=== PATIENT | male | born 1980 | race Caucasian/White ===

== ENCOUNTER 2020-05-17 10:08 | Inpatient (IN) | payer OTHER, SELFPAY ==
[2020-05-17 10:36] LABS: #Basophils 0.1 thou/uL (0.0-0.2); #Eosinphils 0.4 thou/uL (0.0-0.7); #Lymphocytes 3.2 thou/uL (1.20-3.40); #Monocytes 2.1 thou/uL (0.11-0.59); #Neutrophils 10.8 thou/uL (1.40-6.50); %Basophils 0.8 % (0.0-1.0); %Eosinophils 2.4 % (0.0-10.0); %Lymphocytes 19.4 % (21.0-51.0); %Monocytes 12.7 % (0.0-10.0); %Neutrophils 64.7 % (42.0-75.0); Hemoglobin 11.9 g/dL (14.0-18.0); Mean Corpuscular HGB CONC 31.7 g/dL (32.0-36.0); Mean Corpuscular Hemoglobin 35.2 pg (27.0-31.0); Platelet Count 86 thou/uL (130-400); RBC Distribution Width 15.5 % (11.5-14.5); White Blood Cell (WBC) Count 16.7 thou/uL (4.8-10.8)
[2020-05-17 10:52] LABS: ALT (SGPT) 57 U/L (8-55); AST (SGOT) 208 U/L (5-34); Albumin 2.5 g/dL (3.5-5.0); Alkaline Phosphatase 130 U/L (40-110); Anion Gap 17 mmol/L (10-20); BUN (Urea Nitrogen) 12 mg/dL (8.9-20.6); Bilirubin, Total 15.6 mg/dL (0.2-1.2); Calc. Creatinine Clearance 0 mL/min (70-130); Calcium 7.7 mg/dL (7.8-10.44); Carbon Dioxide 19 mmol/L (22-29); Chloride 100 mmol/L (98-107); Estimated GFR-MDRD Greater than 90; Globulin 4.7 g/dL (2.4-3.5); Glucose 106 mg/dL (70-105); Potassium 4.1 mmol/L (3.5-5.1); Protein, Total 7.2 g/dL (6.0-8.3); Sodium 132 mmol/L (136-145)
[2020-05-17 11:03] LABS: INR-International Normal Ratio 1.9; PTT 40.5 sec (22.9-36.1); Prothrombin Time 21.7 sec (12.0-14.7)
--- NOTE | 2020-05-17 11:07 | RAD ---
XR Chest 1 View Portable HISTORY: Shortness of breath coughing up blood COMPARISON: None FINDINGS: The heart size is normal. There is elevation the right hemidiaphragm. The lungs are without focal ar eas of consolidation, pneumothorax or pleural effusions. IMPRESSION: No radiographic evidence of acute cardiopulmonary process.
[2020-05-17 11:11] LABS: MDiff Complete? YES; Macrocytosis MODERATE=16-30 cells (100X) (0-5/hpf); Platelet Morphology Comment Appears Decreased; Polychromasia SLIGHT = 2-3 cells (100X) (0-2/hpf); Target Cells SLIGHT = 2-5 cells (100X) (0-1/hpf)
[2020-05-17] MEDS ORDERED: Iopamidol-370 76% 500 ML 1 ML ONE (11:28)
--- NOTE | 2020-05-17 11:31 | CT ---
CT abdomen and pelvis with IV contrast HISTORY: Abdomen pain. Swelling. FINDINGS: No comparison. Lung bases are clear. Liver has a heterogeneous density and a nodular contour. Dilated venous structures involve the distal esophagus and GE junction. Spleen measures up to 15.3 cm length. Tiny hyperdense focus within the dependent portion of the gallbladder lumen. Prominent edematous appe arance of the gallbladder wall and the colon. Small amount of free fluid throughout the abdomen and pelvis. A 0.2 cm calculus is present within a nondilated calyx at the inferior pole of the left kidney. IMPRESSION : Cirrhosis. Findings of portal venous hypertension include moderate splenomegaly, esophageal varices, small amount of ascites, and edema of the colon and gallbladder. Cholelithiasis.
[2020-05-17] MEDS ORDERED: Pantoprazole 40 MG VIAL ONE (12:13)
[2020-05-17] MEDS ORDERED: Octreotide Acetate 50 MCG/ML AMP ONE (12:13)
[2020-05-17] MEDS ORDERED: cefTRIAXone\\ROCEPHIN 1 GM VIAL ONE (12:13)
[2020-05-17] MEDS ORDERED: Octreotide Acetate 1,250 MCG in Sodium Chloride 0.9% 250 ML 250 ML IVPB SCH (12:30)
[2020-05-17] MEDS ORDERED: Ondansetron PF 4 MG/2 ML Vial IVP PRN (12:30)
[2020-05-17] MEDS ORDERED: hydrALAZINE 20 MG/ML VIAL SLOW IVP PRN (12:39)
[2020-05-17] MEDS ORDERED: Labetalol HCl 100 MG/20 ML VIAL SLOW IVP PRN (12:39)
--- NOTE | 2020-05-17 13:36 | HP ---
PRIMARY CARE PHYSICIAN: No PCP. CHIEF COMPLAINT: Leg swelling. HISTORY OF PRESENT ILLNESS: The patient referred from [facility]. The patient states he noticed his leg started swelling 2 weeks ago. Yesterday, he took some ysdu-noc-ckknhgf water pill from [employer] and noticed his stomach started bloating. He has had fatigue at work. He states he has had dark urine like tea for quite a while. He would not admit to year, but he would not deny. He stated he vomited up some black, dark red blood this morning. He has had black stools for 3 days. Alcohol history is pertinent for 325 mL of vodka a day. PAST MEDICAL HISTORY: He had high blood pressure long ago, his blood pressure came down. He stopped his medicines. He states he checks his blood pressure with a thing at home, and it is always okay. MEDICATIONS: He has no prescription medicines. He does take ibuprofen [id number] every other night. ALLERGIES: HE HAS NO MEDICAL ALLERGIES. PAST SURGICAL HISTORY: He had an umbilical hernia repaired as a baby. He had a testicular torsion. FAMILY HISTORY: No liver disease. Mother is alive. Father is alive. He had a "pig valve" put in his heart. 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 His is surrogate decision maker. Full code status. 325 mL of vodka a day. Smokes four cigarettes a day with the vodka, but does not smoke otherwise, no illicit drugs. REVIEW OF SYSTEMS: GENERAL: No headaches, dizziness, or fainting. EYES: No double vision, blurred vision, or flashing light. EAR, NOSE, AND THROAT: No ear pain or drainage. No nasal bleeding. No trouble swallowing. CARDIAC: No chest pain, orthopnea, or paroxysmal nocturnal dyspnea. RESPIRATIONS: No cough, wheezing, or asthma. GASTROINTESTINAL: See present illness. GENITOURINARY: Dark urine. No blood in his urine. No painful urination. MUSCULOSKELETAL: Several weeks of swelling in his legs. No muscle pain. PSYCHIATRIC: No anxiety or depression. NEUROLOGICAL: No strokes, seizures, or focal weakness. SKIN: He bruises easily, showed me about a 5-cm ecchymosis on one upper arm. HEME/LYMPH: No tender or swollen lymph nodes in axilla, inguinal, cervical area. PHYSICAL EXAMINATION: GENERAL: The patient is alert, pleasant, cooperative gentleman, not in any distress. VITAL SIGNS: His blood pressure is in the emergency room ranged from 184/112 to 170/94. His pulse ranged from 109 to 124, respirations are 18 to 20, temperature 98.4, and O2 sat is adequate. GENERAL: He is alert, oriented, cooperative, pleasant gentleman. HEAD, EYES, EARS, NOSE, AND THROAT: Revealed pupils equal, round, and reactive to light. Extraocular movements are intact. Sclerae are icteric. Tympanic membranes are clear. Nose is clear. Throat is clear. CHEST: Clear to auscultation and percussion. HEART: Had a regular rate and rhythm. First and second heart sounds are clear. There are no appreciated murmurs or gallops. ABDOMEN: Distended with positive fluid wave. He is in no palpable hepatosplenomegaly or mass. No bruits. EXTREMITIES: 2+ edema with no cyanosis or clubbing. PULSES: Carotid, radial, femoral, and dorsalis pedis pulses intact. SKIN: Warm and dry without bruises or rash. HEME/LYMPH: No tender or swollen lymph nodes in axilla, inguinal, or cervical area. NEUROLOGIC: Cranial nerves 2 through 12 are intact. Moves all extremities DIAGNOSTIC DATA: EKG; regular sinus rhythm with mild tachycardia. No ST-T abnormality reviewed by me. Chest x-ray shows high diaphragms bilaterally consistent with limited diaphragmatic movement secondary to ascites. Abdominal and pelvis CT reveals cirrhosis, portal hypertension, moderate splenomegaly, esophageal varices, some ascites, edema of the colon and gallbladder. LABORATORY DATA: Laboratory was impressive. CBC: White count 16.7, hemoglobin 11.9, and platelet count is 86. INR is 1.9. Sodium 132, potassium 4.1, CO2 of 19, BUN 12, creatinine 0.61, lactate 2.5, bilirubin 15.6, AST 208, ALT 57, and alkaline phos 130. ADMITTING DIAGNOSES: 1. Gastrointestinal bleeding, likely varicele. 2. Anemia of acute blood loss. 3. Alcoholic cirrhosis with portal hypertension and varices and splenomegaly. 4. Coagulopathy secondary to alcoholic liver disease. 5. Thrombocytopenia. 6. Hypertension, untreated. PLAN: 1. IMCU care. 2. Type and screen for use 6 units of fresh frozen plasma. 3. H and H q.4 hours. Transfuse for hemoglobin less than 7. 4. Apresoline, labetalol IV for blood pressure control. 5. Banana bag daily. 6. Ativan 1 mg IV q.4 hours p.r.n. anxiety for alcohol withdrawal syndrome. 7. GI consult for endoscopy. Job ID: [id number] [facility] HOSPITALAniket
[2020-05-17 13:59] LABS: #Basophils 0.2 thou/uL (0.0-0.2); #Eosinphils 0.3 thou/uL (0.0-0.7); #Lymphocytes 2.9 thou/uL (1.20-3.40); #Monocytes 2.1 thou/uL (0.11-0.59); #Neutrophils 11.9 thou/uL (1.40-6.50); %Basophils 0.9 % (0.0-1.0); %Eosinophils 1.6 % (0.0-10.0); %Lymphocytes 16.6 % (21.0-51.0); %Monocytes 12.4 % (0.0-10.0); %Neutrophils 68.6 % (42.0-75.0); Hemoglobin 12.3 g/dL (14.0-18.0); MDiff Complete? YES; Macrocytosis SLIGHT = 6-15 cells (100X) (0-5/hpf); Mean Corpuscular HGB CONC 32.4 g/dL (32.0-36.0); Mean Corpuscular Hemoglobin 36.9 pg (27.0-31.0); Mean Platelet Volume 10.3 fL (7.4-10.4); Platelet Count 86 thou/uL (130-400); Platelet Morphology Comment Appears Decreased; RBC Distribution Width 15.8 % (11.5-14.5); Red Blood Cell (RBC) Count 3.34 mill/uL (4.70-6.10); White Blood Cell (WBC) Count 17.3 thou/uL (4.8-10.8)
[2020-05-17 14:29] VITALS: BMI 31.1
[2020-05-17] MEDS: Pantoprazole 40 MG VIAL IVP SCH (14:50)
[2020-05-17] MEDS: Multivitamins, Adult 10 ML, Folic Acid 1 MG, Thiamine HCl 100 MG in Dextrose 5 %-0.45 %... IV SCH (14:50)
[2020-05-17 15:17] LABS: Lactic Acid 2.7 mmol/L (0.5-2.2)
[2020-05-17] MEDS: Lorazepam 2 MG/ML VIAL SLOW IVP PRN (16:35)
[2020-05-17 16:56] LABS: #Basophils 0.1 thou/uL (0.0-0.2); #Eosinphils 0.1 thou/uL (0.0-0.7); #Lymphocytes 1.4 thou/uL (1.20-3.40); #Monocytes 1.2 thou/uL (0.11-0.59); #Neutrophils 8.7 thou/uL (1.40-6.50); %Basophils 0.6 % (0.0-1.0); %Eosinophils 0.6 % (0.0-10.0); %Lymphocytes 12.3 % (21.0-51.0); %Monocytes 10.2 % (0.0-10.0); %Neutrophils 76.4 % (42.0-75.0); Hemoglobin 11.6 g/dL (14.0-18.0); Mean Corpuscular HGB CONC 33.1 g/dL (32.0-36.0); Mean Corpuscular Hemoglobin 36.7 pg (27.0-31.0); Platelet Count 68 thou/uL (130-400); RBC Distribution Width 15.6 % (11.5-14.5); Red Blood Cell (RBC) Count 3.16 mill/uL (4.70-6.10); White Blood Cell (WBC) Count 11.4 thou/uL (4.8-10.8)
[2020-05-17 16:58] LABS: MDiff Complete? YES
[2020-05-17] MEDS: Sodium Chloride 0.9% 1,000 ML IV SCH (19:18)
--- NOTE | 2020-05-17 20:18 | CON ---
DATE OF CONSULTATION: 05/17/2020 REASON FOR CONSULTATION: Hematemesis, new diagnosis of cirrhosis. CONSULTING PROVIDER: Candi Kothari MD HISTORY OF PRESENT ILLNESS: The patient is a 40-year-old male with past medical history of alcohol abuse/dependence, presenting with complaints of lower extremity edema and hematemesis. He states that he was in his usual state of health until approximately two and half weeks ago when he had the persistent/progressive onset of increased lower extremity edema extending from his foot to about mid almeida. He adds that he had this swelling in his legs in the past, but never persisted beyond 24 hours. However, over the next two and half weeks, the patient had worsening of this bilateral lower extremity edema despite elevation of his lower extremities. This was accompanied with increased right upper quadrant abdominal pain that he characterized as a sharp/aching type sensation, was nonradiating, was intermittent, where it would occur daily, lasts for 2 to 3 hours and reach a severity of 8/10. He could not recall any exacerbating factors, but did state that this abdominal pain would get better with drinking alcohol as well as administration of ibuprofen 400 mg daily that he has been taking for the last four months. However, with worsening of this of abdominal pain and lower extremity edema, he also noted increased abdominal distention in addition to having darker colored stools that have been present for the last four days. He characterized his stools as dark brown in coloration, but having approximately 10 to 12 small volume semi-solid bowel movements per day. Finally, his worsening clinical status culminated with the patient exhibiting nausea to this morning with vomiting of small amount of bright red blood that the patient characterizes approximately 1 tablespoon, which then ultimately prompted him to seek healthcare assistance. He also describes increased fatigue/tiredness that have been present for the last two and half weeks. He notes that he has been having increased jaundice (yellowing of his skin and his eyes that have been present for the last two months), in addition to spider angiomata that have been present for the last 2 to 3 years. Currently, he denies any fevers, chills, hematochezia, odynophagia, dysphagia, constipation, and weight loss. REVIEW OF SYSTEMS: A 10-category review of systems was obtained with all responses negative except for the pertinent positives as listed in HPI. PAST MEDICAL HISTORY: As per HPI. PAST SURGICAL HISTORY: Umbilical hernia repaired as a child and repair of testicular torsion. FAMILY HISTORY: Denies any GI malignancies. SOCIAL HISTORY: He drinks approximately one half a bottle of vodka a day. Smokes approximately one quarter to one half pack per day, but denies any illicit drug use. OUTPATIENT MEDICATIONS: Ibuprofen 400 mg daily. ALLERGIES: NO KNOWN DRUG ALLERGIES. PHYSICAL EXAMINATION: VITAL SIGNS: Temperature 99.2, pulse 109, blood pressure 156/86, respiratory rate 25, and saturating 92% on room air. GENERAL: The patient is lying in bed, in no acute distress. Alert and oriented x4. HEENT: Normocephalic and atraumatic. No JVD noted. Positive scleral icterus. CARDIOVASCULAR: Tachycardic rate, but regular rhythm. No discernible murmurs, gallops, or rubs. RESPIRATORY: Clear to auscultation bilaterally with no discernible wheezes or rales. ABDOMEN: Normoactive bowel sounds. Soft, but mildly tense to palpation. Qegs-uh-ayxfufhd abdominal distention with shifting dullness. No tenderness to palpation. EXTREMITIES: 1+/2+ bilateral lower extremity edema extending up to bilateral knees. No cyanosis or clubbing. LABORATORY DATA: CBC with a white blood cell count of 16.7, hemoglobin 11.9, hematocrit 37.7, and platelets 86. INR 1.9. Chemistry with a sodium of 132, potassium 4.1, chloride 100, CO2 of 19, BUN 12, creatinine 0.61, glucose 106, AST 208, ALT 57, alkaline phosphatase 130, total bilirubin 15.6, albumin 2.5, and lipase 40. IMAGING DATA: CT of the abdomen and pelvis was obtained on May 17, 2020, which showed the presence of heterogeneous density of the liver, in addition to a nodular contour concerning for cirrhosis, esophageal varices and gastric varices were seen along with splenomegaly. A small amount of ascites was seen in addition to edema surrounding the colon and the gallbladder. ASSESSMENT AND PLAN: The patient is a 40-year-old male with past medical history of alcohol abuse/dependence, presenting with hematemesis and a new diagnosis of cirrhosis likely contributing to his lower extremity edema and abdominal distention. Cirrhosis. The patient is presenting with an extensive alcohol consumption history, drinking approximately one half liter of vodka daily for at least the last 20 years. On physical examination, he does have significant swelling in his lower extremities in addition to abdominal distention, spider angiomata, scleral icterus, and generalized jaundice, all indicative of liver pathology. On imaging, the patient is displaying cirrhotic morphology of the liver in addition to esophageal and gastric varices all pointing towards the diagnosis of cirrhosis. At the current time, the most likely etiology for his cirrhosis is alcohol abuse, although full liver workup has not been performed at this time. The patient is presenting with decompensated liver disease with a calculated MELD score of 27 and a Child-Macdonald classification C. The patient has never undergone esophagogastroduodenoscopy or colonoscopy for screening of esophageal varices and colorectal cancer respectively. Based on his current imaging, there was no evidence of hepatoma/hepatocellular carcinoma, but the patient will need repeat imaging every 6 months. Recommendations; 1. Would perform a full liver workup to evaluate for any underlying etiologies for cirrhosis despite chronic alcohol abuse. 2. Strongly encourage the patient about alcohol cessation/abstinence. 3. The patient will ultimately need a screening colonoscopy as an outpatient, but would hold at this time. 4. Based on the recent alcohol abuse. The patient is not currently a transplant candidate despite a significantly elevated MELD score, if he continues to have an elevated MELD score and is able to abstain from alcohol, he may be transplant candidate in the future. Hematemesis. The patient is presenting with one episode of hematemesis characterized as coffee-grounds/bright red blood this morning with approximately 1 tablespoon worth of bleeding. However, given his new diagnosis of cirrhosis, in addition to his coagulopathy (INR 1.9), it does raise the concern for continued or active bleeding at this time. However, while the patient is currently tachycardic, he is normotensive, which raises the question whether or not he continues to be actively bleeding. At the current time, the differential could include esophageal varices, portal hypertensive gastropathy, peptic ulcer disease, Dieulafoy lesion, arteriovenous malformation, gastroesophageal reflux disease and/or gastrointestinal neoplasm. Recommendations; 1. Would continue to trend his H and H and transfuse as necessary to maintain an H and H of 7/21. 2. Continue to monitor clinically for signs of active gastrointestinal bleeding. 3. Would place the patient on pantoprazole 40 mg IV b.i.d. 4. We will place the patient on octreotide drip for possible esophageal varices bleeding. 5. Would avoid any anticoagulation for the time being in light of active gastrointestinal bleeding. 6. Agree with placing the patient on antibiotics as part of infection prophylaxis in a bleeding patient with cirrhosis. Lower extremity edema/abdominal ascites. The patient is presenting with new onset of lower extremity edema and ascites that had been present for the last two and half weeks. On initial imaging, the patient was noted to have a small amount of ascites in addition to cirrhotic morphology, making cirrhosis more likely explanation for the formation of these areas of swelling. However, with his concurrent concern for gastrointestinal bleeding, placement on diuretic therapy at this time may not be indicated due to possibility of hypotension. Recommendations; 1. Would place the patient on a low-sodium, high-protein diet over the course of this admission after the patient has undergone upper endoscopy. 2. Would consider pursuing an upper abdominal paracentesis for further evaluation of his ascitic fluid, especially in light of worsening abdominal pain. 3. Would consider placing the patient on diuretic therapy, but again not at this time given concern for active gastrointestinal bleeding. We will continue to follow. Please call with any questions. Job ID: [id number]
[2020-05-17 21:24] LABS: #Basophils 0.1 thou/uL (0.0-0.2); #Eosinphils 0.1 thou/uL (0.0-0.7); #Monocytes 1.5 thou/uL (0.11-0.59); #Neutrophils 7.6 thou/uL (1.40-6.50); %Basophils 0.6 % (0.0-1.0); %Eosinophils 1.1 % (0.0-10.0); %Lymphocytes 17.4 % (21.0-51.0); %Monocytes 13.4 % (0.0-10.0); %Neutrophils 67.4 % (42.0-75.0); Hemoglobin 10.6 g/dL (14.0-18.0); Mean Corpuscular HGB CONC 31.7 g/dL (32.0-36.0); Mean Corpuscular Hemoglobin 35.5 pg (27.0-31.0); Mean Platelet Volume 9.9 fL (7.4-10.4); Platelet Count 60 thou/uL (130-400); RBC Distribution Width 15.4 % (11.5-14.5); Red Blood Cell (RBC) Count 2.98 mill/uL (4.70-6.10); White Blood Cell (WBC) Count 11.3 thou/uL (4.8-10.8)
[2020-05-18 01:01] LABS: #Basophils 0.1 thou/uL (0.0-0.2); #Eosinphils 0.2 thou/uL (0.0-0.7); #Lymphocytes 1.8 thou/uL (1.20-3.40); #Monocytes 1.1 thou/uL (0.11-0.59); %Basophils 0.5 % (0.0-1.0); %Eosinophils 1.9 % (0.0-10.0); %Lymphocytes 19.7 % (21.0-51.0); %Monocytes 12.1 % (0.0-10.0); %Neutrophils 65.8 % (42.0-75.0); Hemoglobin 10.2 g/dL (14.0-18.0); Mean Corpuscular HGB CONC 32.9 g/dL (32.0-36.0); Mean Corpuscular Hemoglobin 36.8 pg (27.0-31.0); Mean Platelet Volume 10.1 fL (7.4-10.4); Platelet Count 56 thou/uL (130-400); RBC Distribution Width 15.4 % (11.5-14.5); Red Blood Cell (RBC) Count 2.78 mill/uL (4.70-6.10); White Blood Cell (WBC) Count 9.2 thou/uL (4.8-10.8)
[2020-05-18] MEDS: Sodium Chloride 0.9% 1,000 ML IV SCH ×3 (01:03→23:06)
[2020-05-18 04:00] LABS: INR-International Normal Ratio 1.8; Prothrombin Time 21.1 sec (12.0-14.7)
[2020-05-18 04:03] LABS: Lactic Acid 0.8 mmol/L (0.5-2.2)
[2020-05-18 04:12] LABS: ALT (SGPT) 51 U/L (8-55); AST (SGOT) 195 U/L (5-34); Albumin 2.4 g/dL (3.5-5.0); Alkaline Phosphatase 99 U/L (40-110); Anion Gap 11 mmol/L (10-20); BUN (Urea Nitrogen) 13 mg/dL (8.9-20.6); Calc. Creatinine Clearance 216 mL/min (70-130); Calcium 7.4 mg/dL (7.8-10.44); Carbon Dioxide 24 mmol/L (22-29); Chloride 105 mmol/L (98-107); Estimated GFR-MDRD Greater than 90; Glucose 95 mg/dL (70-105); Potassium 3.7 mmol/L (3.5-5.1); Protein, Total 6.4 g/dL (6.0-8.3); Sodium 136 mmol/L (136-145)
[2020-05-18 06:30] LABS: #Basophils 0.1 thou/uL (0.0-0.2); #Eosinphils 0.2 thou/uL (0.0-0.7); #Lymphocytes 1.7 thou/uL (1.20-3.40); #Neutrophils 5.7 thou/uL (1.40-6.50); %Basophils 0.8 % (0.0-1.0); %Eosinophils 2.1 % (0.0-10.0); %Lymphocytes 19.3 % (21.0-51.0); %Monocytes 11.3 % (0.0-10.0); %Neutrophils 66.6 % (42.0-75.0); Mean Corpuscular HGB CONC 31.9 g/dL (32.0-36.0); Mean Corpuscular Hemoglobin 35.7 pg (27.0-31.0); Mean Platelet Volume 9.9 fL (7.4-10.4); Platelet Count 54 thou/uL (130-400); RBC Distribution Width 15.6 % (11.5-14.5); White Blood Cell (WBC) Count 8.6 thou/uL (4.8-10.8)
[2020-05-18] MEDS: Pantoprazole 40 MG VIAL IVP SCH (08:57)
[2020-05-18 09:01] LABS: #Basophils 0.1 thou/uL (0.0-0.2); #Eosinphils 0.2 thou/uL (0.0-0.7); #Lymphocytes 1.5 thou/uL (1.20-3.40); #Neutrophils 6.9 thou/uL (1.40-6.50); %Basophils 0.7 % (0.0-1.0); %Eosinophils 1.6 % (0.0-10.0); %Lymphocytes 15.3 % (21.0-51.0); %Monocytes 10.5 % (0.0-10.0); %Neutrophils 71.9 % (42.0-75.0); Hemoglobin 10.5 g/dL (14.0-18.0); Mean Corpuscular HGB CONC 32.3 g/dL (32.0-36.0); Mean Corpuscular Hemoglobin 36.6 pg (27.0-31.0); Mean Platelet Volume 9.5 fL (7.4-10.4); Platelet Count 58 thou/uL (130-400); RBC Distribution Width 15.3 % (11.5-14.5); Red Blood Cell (RBC) Count 2.88 mill/uL (4.70-6.10); White Blood Cell (WBC) Count 9.6 thou/uL (4.8-10.8)
[2020-05-18] MEDS ORDERED: Ondansetron HCl/PF 4 MG/2 ML Vial IVP PRN (09:43)
[2020-05-18] MEDS ORDERED: Ketamine 50 MG/ML (10ML VIAL) ONE (09:44)
[2020-05-18] MEDS ORDERED: Lidocaine 1% PF 5 ML VIAL ONE (10:10)
[2020-05-18] MEDS ORDERED: PROPOFOL 200 MG/20 ML VIAL ONE (10:10)
--- NOTE | 2020-05-18 11:06 | OP ---
DATE OF PROCEDURE: 05/18/2020 REASON FOR PROCEDURE: Hematemesis, recent diagnosis of cirrhosis PROCEDURE PERFORMED: Esophagogastroduodenoscopy with band ligation. DESCRIPTION OF PROCEDURE: After the risks and benefits of the procedure were explained to the patient including risks of bleeding, infection, perforation, reactions to anesthesia, aspiration, and/or pain, informed consent was obtained. The patient was then taken to the endoscopy suite where he was maneuvered into the left lateral decubitus position followed by introduction of deep sedation via propofol and anesthesia support. Once adequate sedation was achieved, the standard gastroscope was introduced into the mouth with intubation of the esophagus, stomach, and the proximal small intestines with the findings listed below. The patient tolerated the procedure well with no immediate perioperative complications. On conclusion of the procedure, all equipment was removed from the patient and he was transferred to PACU in satisfactory condition. FINDINGS: Hypopharynx: The vocal cords were adequately visualized and yellow in appearance, but otherwise normal in morphology. Esophagus: Normal-appearing mucosa was seen in the proximal and mid esophagus; however, in the distal esophagus, there was noted to be large (grade 2/3) esophageal varices, extending proximally from the gastroesophageal junction. One of these varices did exhibit the appearance of mild red spot/red dania sign with no evidence of recent bleeding. However, given this high stigmata of bleeding, he subsequently underwent band ligation x3 with good hemostasis achieved and mild oozing of blood from the band ligation sites themselves. Otherwise, there was no evidence of erosions, ulcerations, mass lesions, or evidence of recent bleeding. Stomach: Diffuse mucosal erythema in a mosaic-type pattern was seen throughout the entire stomach and was moderate to severe in terms of severity; however, with this diffuse erythema, there were no associated erosions, ulcerations, mass lesions, or active/recent bleeding. There was no evidence of gastric varices on gastric retroflexion. Duodenum: Normal-appearing mucosa was seen in both the duodenal bulb and second portion of the duodenum. There was no evidence of erosions, ulcerations, mass lesions, or active/recent bleeding. IMPRESSION: 1. Large (grade 2/3) distal esophageal varices with red dania sign status post band ligation x3. 2. [id number] portal hypertensive gastropathy without evidence of bleeding. 3. No evidence of gastric varices. RECOMMENDATIONS: 1. Would continue to trend the patient's hemoglobin and hematocrit and transfuse as necessary to maintain the hemoglobin and hematocrit of 7/21. 2. Continue to monitor clinically for signs of GI bleeding. 3. Would continue the patient on PPI, but can be transferred to pantoprazole 40 mg IV b.i.d. 4. Would continue the patient on octreotide drip given the presence of esophageal varices and would continue this for a total duration of therapy of 72 hours. 5. Agree with placing the patient on an alcohol withdrawal protocol. 6. Would continue the patient on ceftriaxone daily in light of GI bleeding in a cirrhotic patient. 7. The patient will need repeat EGD in approximately 3 to 4 weeks for re-evaluation of the esophageal varices and possible band ligation at that time. The patient will also need to be placed on a nonselective beta-trina prior to admission, but would hold on that for now. We will continue to follow. Please call with any questions. Job ID: [id number]
[2020-05-18 12:37] LABS: SARS-CoV-2 MS2 Positive; SARS-CoV-2 N Gene Positive; SARS-CoV-2 S Gene Positive; SARS-CoV-2 by NAA DETECTED (NotDetected); SARS-CoV-2 orf1ab Positive
--- NOTE | 2020-05-18 13:56 | PDOC.HOSPP ---
- Subjective Encounter Date: 05/18/20 Subjective: No evidence of hematemesis this morning. - Objective Vital Signs & Weight: Vital Signs (12 hours) Temp Pulse Ox 05/18/20 08:11 99.8 F H 05/18/20 08:00 98 05/18/20 03:31 99.8 F H Weight Admit Weight 230 lb Weight 230 lb Most Recent Monitor Data Heart Rate from ECG 94 NIBP 134/88 NIBP BP-Mean 103 Respiration from ECG 19 SpO2 94 I&O: 05/17/20 05/18/20 05/19/20 06:59 06:59 06:59 Intake Total 1266 Output Total 570 Balance 696 Result Diagrams: 05/19/20 03:20 05/19/20 03:20 Hospitalist ROS - Medication Medications: Active Medications Generic Name Dose Route Start Last Admin Trade Name Freq PRN Reason Stop Dose Admin Sodium Chloride 1,000 mls @ 100 mls/hr 05/17/20 12:30 05/18/20 01:03 Normal Saline 0.9% IV 1,000 mls .Q10H YOANDY Administration Multivitamins 10 ml/ Folic 1,011.2 mls @ 250 mls/hr 05/17/20 13:00 05/17/20 14:50 Acid 1 mg/ Thiamine HCl 100 mg IV 1,011.2 mls / Dextrose/Sodium Chloride Q24HR YOANDY Administration Lorazepam 1 mg 05/17/20 12:56 05/17/20 16:35 Ativan SLOW IVP 1 mg Q4H PRN Administration Anxiety/Agitation Ondansetron HCl 4 mg 05/17/20 12:30 05/17/20 16:54 Zofran IVP 4 mg Q6H PRN Administration Nausea/Vomiting Pantoprazole Sodium 40 mg 05/17/20 09:00 05/18/20 08:57 Protonix IVP 40 mg DAILY YOANDY Administration - Exam ENT: normocephalic atraumatic Neck: supple, no JVD Respiratory: normal chest expansion, no tachypnea Extremities: no cyanosis, no clubbing, no edema Hosp A/P (1) Hematemesis Code(s): K92.0 - HEMATEMESIS Status: Acute (2) Liver cirrhosis Code(s): K74.60 - UNSPECIFIED CIRRHOSIS OF LIVER Status: Acute (3) Esophageal varices Code(s): I85.00 - ESOPHAGEAL VARICES WITHOUT BLEEDING Status: Acute (4) Anemia due to acute blood loss Code(s): D62 - ACUTE POSTHEMORRHAGIC ANEMIA Status: Acute (5) Thrombocytopenia Code(s): D69.6 - THROMBOCYTOPENIA, UNSPECIFIED Status: Acute (6) COVID-19 virus infection Code(s): U07.1 - COVID-19 Status: Acute - Plan Acute upper GI bleeding due to esophageal varices. Secondary to liver cirrhosis with portal hypertension. Status post EGD with band ligation. Continue Protonix 40 mg IV twice daily and octreotide drip for 72 hours. The patient is a positive for COVID-19, however, he is not hypoxic and will be managed conservatively. Continue ASA protocol for alcohol withdrawal.
[2020-05-18] MEDS: Lorazepam 2 MG/ML VIAL SLOW IVP PRN ×2 (14:34→22:19)
[2020-05-18] MEDS: Multivitamins, Adult 10 ML, Folic Acid 1 MG, Thiamine HCl 100 MG in Dextrose 5 %-0.45 %... IV SCH (14:38)
[2020-05-19 03:42] LABS: Prothrombin Time 22.8 sec (12.0-14.7)
[2020-05-19 03:43] LABS: #Basophils 0.1 thou/uL (0.0-0.2); #Eosinphils 0.2 thou/uL (0.0-0.7); #Lymphocytes 1.2 thou/uL (1.20-3.40); #Monocytes 0.8 thou/uL (0.11-0.59); #Neutrophils 4.7 thou/uL (1.40-6.50); %Basophils 1.1 % (0.0-1.0); %Eosinophils 3.1 % (0.0-10.0); %Lymphocytes 17.6 % (21.0-51.0); %Monocytes 11.1 % (0.0-10.0); %Neutrophils 67.1 % (42.0-75.0); Mean Corpuscular HGB CONC 32.6 g/dL (32.0-36.0); Mean Corpuscular Hemoglobin 37.5 pg (27.0-31.0); Mean Platelet Volume 10.2 fL (7.4-10.4); Platelet Count 51 thou/uL (130-400); RBC Distribution Width 15.6 % (11.5-14.5); Red Blood Cell (RBC) Count 2.67 mill/uL (4.70-6.10); White Blood Cell (WBC) Count 6.9 thou/uL (4.8-10.8)
[2020-05-19 03:58] LABS: ALT (SGPT) 51 U/L (8-55); AST (SGOT) 196 U/L (5-34); Albumin 2.3 g/dL (3.5-5.0); Alkaline Phosphatase 93 U/L (40-110); Anion Gap 11 mmol/L (10-20); BUN (Urea Nitrogen) 9 mg/dL (8.9-20.6); Bilirubin, Total 20.8 mg/dL (0.2-1.2); Calc. Creatinine Clearance 238 mL/min (70-130); Calcium 7.4 mg/dL (7.8-10.44); Carbon Dioxide 21 mmol/L (22-29); Chloride 108 mmol/L (98-107); Estimated GFR-MDRD Greater than 90; Glucose 77 mg/dL (70-105); Potassium 3.8 mmol/L (3.5-5.1); Protein, Total 6.3 g/dL (6.0-8.3); Sodium 136 mmol/L (136-145)
[2020-05-19] MEDS: Sodium Chloride 0.9% 1,000 ML IV SCH ×2 (10:38→15:39)
[2020-05-19] MEDS: Pantoprazole 40 MG VIAL IVP SCH (10:38)
[2020-05-19] MEDS: Multivitamins, Adult 10 ML, Folic Acid 1 MG, Thiamine HCl 100 MG in Dextrose 5 %-0.45 %... IV SCH (13:46)
--- NOTE | 2020-05-19 14:33 | PDOC.HOSPP ---
- Subjective Encounter Date: 05/19/20 Subjective: No new complaints today. Patient appears to be calm. - Objective Vital Signs & Weight: Vital Signs (12 hours) Temp Pulse Ox 05/19/20 08:00 98 05/19/20 07:00 98.5 F 05/19/20 03:41 98.6 F Weight Admit Weight 230 lb Weight 230 lb Most Recent Monitor Data Heart Rate from ECG 86 NIBP 137/74 NIBP BP-Mean 95 Respiration from ECG 25 SpO2 98 I&O: 05/18/20 05/19/20 05/20/20 06:59 06:59 06:59 Intake Total 3867 057 0910 Output Total 570 1650 300 Balance 696 -460 980 Result Diagrams: 05/19/20 03:20 05/19/20 03:20 Hospitalist ROS - Medication Medications: Active Medications Generic Name Dose Route Start Last Admin Trade Name Freq PRN Reason Stop Dose Admin Octreotide Acetate 1,250 mcg/ 251.25 mls @ 10.05 mls/hr 05/17/20 12:30 14:34 Sodium Chloride IVPB 251.25 mls INF YOANDY Administration 50 MCG/HR Sodium Chloride 1,000 mls @ 100 mls/hr 05/17/20 12:30 05/19/20 10:38 Normal Saline 0.9% IV 1,000 mls .Q10H YOANDY Administration Multivitamins 10 ml/ Folic 1,011.2 mls @ 250 mls/hr 05/17/20 13:00 05/19/20 13:46 Acid 1 mg/ Thiamine HCl 100 mg IV 1,011.2 mls / Dextrose/Sodium Chloride Q24HR YOANDY Administration Lorazepam 1 mg 05/17/20 12:56 05/18/20 22:19 Ativan SLOW IVP 1 mg Q4H PRN Administration Anxiety/Agitation Ondansetron HCl 4 mg 05/17/20 12:30 05/17/20 16:54 Zofran IVP 4 mg Q6H PRN Administration Nausea/Vomiting Pantoprazole Sodium 40 mg 05/17/20 09:00 05/19/20 10:38 Protonix IVP 40 mg DAILY YOANDY Administration - Exam Neck: supple, no JVD Respiratory: CTAB Gastrointestinal: soft Extremities: no cyanosis, no clubbing Hosp A/P (1) Hematemesis Code(s): K92.0 - HEMATEMESIS Status: Acute (2) Liver cirrhosis Code(s): K74.60 - UNSPECIFIED CIRRHOSIS OF LIVER Status: Acute (3) Esophageal varices Code(s): I85.00 - ESOPHAGEAL VARICES WITHOUT BLEEDING Status: Acute (4) Anemia due to acute blood loss Code(s): D62 - ACUTE POSTHEMORRHAGIC ANEMIA Status: Acute (5) Thrombocytopenia Code(s): D69.6 - THROMBOCYTOPENIA, UNSPECIFIED Status: Acute (6) COVID-19 virus infection Code(s): U07.1 - COVID-19 Status: Acute - Plan Acute upper GI bleeding due to esophageal varices. Secondary to liver cirrhosis with portal hypertension. Status post EGD with band ligation. No active bleeding reported today. H&H stable. Continue Protonix 40 mg IV twice daily and octreotide drip for 48 hours. The patient is a positive for COVID-19, however, he is not hypoxic and will be managed conservatively. Continue ASE protocol for alcohol withdrawal. No overt signs of withdrawal today.
--- NOTE | 2020-05-19 17:33 | PRG ---
DATE OF SERVICE: 05/19/2020 REASON FOR CONSULTATION: Hematemesis and cirrhosis. SUBJECTIVE: Overnight, the patient did not experience any acute events or problems. He had no further episodes of hematemesis nor did he have any episodes of melena consistent with GI bleeding. Today, he states he had some mild abdominal bloating/discomfort that resolved completely with having a bowel movement. Otherwise, he denies any nausea, vomiting, fevers, chills, hematemesis, melena, hematochezia, odynophagia, or dysphagia. OBJECTIVE: VITAL SIGNS: Temperature 98.3, pulse 82, blood pressure 157/69, respiratory rate 16, saturating 95% on room air. GENERAL: The patient was lying in bed, in no acute distress. Alert and oriented x4. CARDIOVASCULAR: Regular rate and rhythm. RESPIRATORY: Clear to auscultation bilaterally. ABDOMEN: Normoactive bowel sounds. Soft, nontender. [id number] abdominal distention. EXTREMITIES: 1+/2+ bilateral lower extremity edema extending up to the knees. LABORATORY DATA: CBC with a white blood cell count of 6.9, hemoglobin 10, hematocrit 30.6, platelets 51. Chemistry with a sodium of 136, potassium 3.8, chloride 108, CO2 of 21, BUN 9, creatinine 0.61, glucose 77. INR 2.0. AST 196, ALT 51, alkaline phosphatase 93, total bilirubin 20.8. Calculated MELD score of 27. IMAGING DATA: The patient underwent upper endoscopy on May 18, 2020, which showed the presence of large (grade 2/3) distal esophageal varices with red dania sign concerning for GI bleeding, now status post band ligation x3, cjtcxmwy-[id number]-lhqjue portal hypertensive gastropathy without evidence of bleeding was also seen without any evidence of gastric varices. ASSESSMENT AND PLAN: The patient is a 40-year-old male with past medical history of alcohol abuse/dependence, presenting with hematemesis, anemia, and a new diagnosis of cirrhosis, likely contributing to his current clinical situation. Cirrhosis. The patient is presenting with an extensive history of alcohol consumption with a new diagnosis of cirrhosis during this admission based on cirrhotic morphology of the liver, spider angiomata, significant jaundice, and esophageal varices seen on upper endoscopy. At the current time, the most likely etiology for his cirrhosis is alcohol abuse, although full liver workup is still pending at this time. The patient is presenting with decompensated liver disease with a calculated MELD score of 27 and Child-Macdonald classification C. He has never undergone a colonoscopy for screening for colorectal cancer, although imaging obtained during this admission did not show any evidence of hepatoma/hepatocellular carcinoma. Recommendations; 1. We would follow up on the full liver workup for any other underlying etiologies for cirrhosis other than chronic alcohol abuse. 2. Strongly encouraged continued alcohol cessation/abstinence. 3. The patient will ultimately need a screening colonoscopy, but can be performed as an outpatient. Hematemesis. The patient initially presented with 1 episode of hematemesis, characterized as coffee-ground/bright red blood with a very small amount of bloody vomitus at that time. However, he did have evidence of a mild anemia on his labs, raising concern for possible gastrointestinal bleeding. He subsequently underwent an upper endoscopy on May 18, 2020, with the findings of large esophageal varices in the distal esophagus with red dania sign concerning for possible bleeding source. He ultimately underwent band ligation x3 with stabilization of his H and H and no further episodes of gastrointestinal bleeding. Recommendations; 1. We would continue to trend his H and H and transfuse as necessary to maintain an H and H of 7/21. 2. Continue to monitor clinically for signs of active gastrointestinal bleeding. 3. Continue the patient on pantoprazole 40 mg IV b.i.d. 4. Continue octreotide drip for esophageal varices treatment and total duration of therapy is 72 hours (can discontinue tomorrow). 5. Continue to avoid any anticoagulation in light of recent active gastrointestinal bleeding. 6. Continue antibiotics as part of infection prophylaxis in a bleeding patient with cirrhosis. 7. The patient will ultimately need repeat EGD in 3 to 4 weeks in an attempt to band these varices to eradication. 8. The patient will ultimately need to be placed on a nonselective beta-trina prior to discharge for prophylaxis for further variceal bleeds. Lower extremity edema/abdominal ascites. The patient is also presenting with new onset of lower extremity edema and ascites that have been present for the last 2-1/2 weeks. At this time, the most likely reason for his ascites and lower extremity edema would be the sequelae of cirrhosis. Recommendations; 1. We would ultimately place the patient on a low-sodium, high-protein diet over the course of this admission with advancing his diet to this over the next 24 hours. 2. We would obtain an abdominal paracentesis for further evaluation of his ascitic fluid. 3. We will consider placing the patient on spironolactone/furosemide starting tomorrow as part of treatment for this condition. We will continue to follow. Please call with any questions. Job ID: [id number]
[2020-05-20] MEDS: Sodium Chloride 0.9% 1,000 ML IV SCH (00:15)
[2020-05-20] MEDS: Pantoprazole 40 MG VIAL IVP SCH (08:39)
--- NOTE | 2020-05-20 11:32 | ULT ---
ULTRASOUND ABDOMEN LIMITED: HISTORY: Pain. COMPARISON: None. FINDINGS: There is minimal free fluid in the pelvis. IMPRESSION: Minimal free fluid in the pelvis and abdomen. POS: HOME
--- NOTE | 2020-05-20 12:02 | PDOC.HOSPP ---
- Subjective Encounter Date: 05/20/20 Subjective: No signs of alcohol withdrawal. - Objective Vital Signs & Weight: Vital Signs (12 hours) Temp Pulse Resp BP BP Pulse Ox 05/20/20 08:45 126/74 05/20/20 08:00 98.6 F 89 14 95/60 96 05/20/20 07:50 96 05/20/20 04:00 98.4 F 80 16 130/71 95 Weight Admit Weight 230 lb Weight 230 lb Most Recent Monitor Data Heart Rate from ECG 86 NIBP 137/74 NIBP BP-Mean 95 Respiration from ECG 25 SpO2 98 I&O: 05/19/20 05/20/20 05/21/20 06:59 06:59 06:59 Intake Total 960 1280 Output Total 1650 300 Balance -690 980 Result Diagrams: 05/19/20 03:20 05/19/20 03:20 Hospitalist ROS - Medication Medications: Active Medications Generic Name Dose Route Start Last Admin Trade Name Freq PRN Reason Stop Dose Admin Octreotide Acetate 1,250 mcg/ 251.25 mls @ 10.05 mls/hr 05/17/20 12:30 14:34 Sodium Chloride IVPB 05/20/20 12:30 251.25 mls INF YOANDY Administration 50 MCG/HR Lorazepam 1 mg 05/17/20 12:56 05/18/20 22:19 Ativan SLOW IVP 1 mg Q4H PRN Administration Anxiety/Agitation Ondansetron HCl 4 mg 05/17/20 12:30 05/17/20 16:54 Zofran IVP 4 mg Q6H PRN Administration Nausea/Vomiting Pantoprazole Sodium 40 mg 05/17/20 09:00 05/20/20 08:39 Protonix IVP 40 mg DAILY YOANDY Administration - Exam General Appearance: awake alert ENT: normocephalic atraumatic Neck: supple, no JVD Respiratory: normal chest expansion, no tachypnea Gastrointestinal: soft, non-tender, distended Neurological: cranial nerve grossly intact, no new deficit Hosp A/P (1) Hematemesis Code(s): K92.0 - HEMATEMESIS Status: Acute (2) Liver cirrhosis Code(s): K74.60 - UNSPECIFIED CIRRHOSIS OF LIVER Status: Acute (3) Esophageal varices Code(s): I85.00 - ESOPHAGEAL VARICES WITHOUT BLEEDING Status: Acute (4) Anemia due to acute blood loss Code(s): D62 - ACUTE POSTHEMORRHAGIC ANEMIA Status: Acute (5) Thrombocytopenia Code(s): D69.6 - THROMBOCYTOPENIA, UNSPECIFIED Status: Acute (6) COVID-19 virus infection Code(s): U07.1 - COVID-19 Status: Acute - Plan Acute upper GI bleeding due to esophageal varices. Secondary to liver cirrhosis with portal hypertension. Status post EGD with band ligation. Continue Protonix and discontinue octreotide this afternoon. Start low-salt diet in addition to furosemide 40 mg and Aldactone 100 mg orally daily. Abdominal ultrasound revealed minimal ascites. The patient is a positive for COVID-19, however, he is not hypoxic and will be managed conservatively. Continue ASA protocol for alcohol withdrawal.
--- NOTE | 2020-05-20 22:15 | PRG ---
DATE OF SERVICE: 05/20/2020 REASON FOR CONSULTATION: Hematemesis and cirrhosis. SUBJECTIVE: Per nursing staff, the patient did not have any acute events or problems overnight. No further episodes of hematemesis nor where did he have any episodes of melena were recorded. Currently, he denies any nausea, vomiting, fevers, chills, hematemesis, melena, hematochezia, odynophagia, or dysphagia. OBJECTIVE: VITAL SIGNS: Temperature 98.6, pulse 89, blood pressure 126/74, respiratory rate 14, saturating 96% on room air. Physical exam was not performed due to the patient's COVID-19 status. LABORATORY DATA: No current studies are available for review. IMAGING DATA: No current studies are available for review. ASSESSMENT AND PLAN: The patient is a 40-year-old male with past medical history of alcohol abuse/dependence, presenting with hematemesis, anemia, and a new diagnosis of cirrhosis. Cirrhosis: The patient initially presented with an extensive history of alcohol consumption with a new diagnosis of cirrhosis based on cirrhotic morphology of the liver, spider angiomata, significant jaundice and esophageal varices seen on upper endoscopy. At the current time, the most likely etiology for his cirrhosis is alcohol abuse, although full liver workup is still pending at this time. The patient is presenting with decompensated liver disease with most recent calculated MELD score of 27 and Child-Macdonald classification C. He has never undergone a colonoscopy for screening for colorectal cancer and imaging obtained during this admission did not show any evidence of HCC. Recommendations: 1. We would follow up on full liver workup for any other underlying etiologies. 2. Strongly encourage continued alcohol cessation. 3. We would perform a screening colonoscopy as an outpatient. Hematemesis: The patient initially presented with one episode of hematemesis characterized as coffee-grounds/bright red blood, but with mild anemia on labs, raising concern for GI bleeding. He underwent upper endoscopy on May 18, 2020, with findings of large esophageal varices with red dania sign, so he underwent band ligation x3 with stabilization of his H and H during this admission and no further episodes of GI bleeding. Recommendations: 1. We would continue to trend his H and H and transfuse as necessary to maintain an H and H of 07/. 2. Continue to monitor clinically for signs of active GI bleeding. 3. Can transfer the patient to pantoprazole 40 mg oral twice daily. 4. Agree with discontinuation of the octreotide drip given completion of therapy. 5. Continue to avoid any anticoagulation unless clinically indicated. We will continue antibiotics as part of infection prophylaxis for total duration of therapy of 5 to 7 days. 6. The patient will ultimately need repeat EGD in 3 to 4 weeks for repeat band ligation at that time. 7. We would place the patient on propranolol 10 mg b.i.d. as part of nonselective beta-blockade and secondary prophylaxis for further vascular bleeds. Lower extremity edema/abdominal ascites: The patient also presented with new onset of lower extremity edema and ascites with no evidence of infection in his lower extremities. Abdominal ultrasound obtained on May 20, 2020, did not show any significant fluid to tap. Given the lack of significant fluid on ultrasound today, it is questionable whether or not the patient needs diuretic therapy as an outpatient. Recommendations: 1. We would place the patient on a low-sodium, high-protein diet and continue this as an outpatient. 2. We would hold on spironolactone/furosemide given the lack of significant ascites on ultrasound today. We will follow this up as an outpatient. Given stabilization of the patient's status and stable H and H, the patient could be potentially discharged to home with followup in the GI clinic in 2 to 3 weeks. Please call with any questions. Job ID: [id number]
[2020-05-21] MEDS ORDERED: traMADol HCl 50 MG TAB PO SCH (05:00)
[2020-05-21 05:35] VITALS: BP 125/74; TEMP 98.3
[2020-05-21] MEDS ORDERED: Furosemide 40 MG TAB PO SCH (07:30)
[2020-05-21] MEDS ORDERED: Spironolactone 100 MG TAB PO SCH (08:00)
[2020-05-21] MEDS: Pantoprazole 40 MG VIAL IVP SCH (08:35)
[2020-05-21] MEDS ORDERED: Propranolol 10 MG TAB PO SCH (09:00)
--- NOTE | 2020-05-21 21:01 | DIS ---
DATE OF ADMISSION: 05/17/2020 DATE OF DISCHARGE: 05/21/2020 DISCHARGE DIAGNOSES: 1. Acute upper GI bleeding. 2. Hematemesis. 3. Esophageal varices with bleeding. 4. Portal hypertension. 5. Liver cirrhosis. 6. Anemia due to acute blood loss. 7. Thrombocytopenia secondary to liver cirrhosis. 8. COVID-19 infection. DISCHARGE MEDICATIONS: 1. Pantoprazole 40 mg orally twice daily. 2. Propranolol 10 mg orally twice daily. 3. Aldactone 50 mg orally daily. 4. Furosemide 20 mg orally daily. HISTORY OF PRESENT ILLNESS AND HOSPITAL COURSE: The patient is a 40-year-old male with past medical history of alcohol abuse, who presented to the emergency department with hematemesis. The patient was admitted to the intensive care unit. The patient was found to be anemic, but his hemoglobin and hematocrit levels were stable, not requiring a blood transfusion. He underwent an emergent EGD, which showed large grade 2 to 3 distal esophageal varices with red dania sign, status post banding and ligation x3. It also showed [id number] portal hypertensive gastropathy without evidence of bleeding. The procedure achieved hemostasis, and the patient did not have any recurrence of bleeding. CT scan of the abdomen showed evidence of liver cirrhosis with portal hypertension. Ultrasound of abdomen revealed minimal ascites. The patient's diet was advanced gradually and he was placed on low-dose Lasix and Aldactone in addition to propranolol to prevent recurrence of GI bleeding. Outpatient followup with GI is recommended in 3 weeks for repeat EGD. Job ID: [id number]
== END 2020-05-21 10:51 | disposition home or self-care (01) | DRG 432 ==
LOC: ERS 10:08 → IMCU/EMU 12:15 → T4-A 05-19 15:20
PROVIDERS: ADMIT Internal Medicine; ATTEND Internal Medicine
PROC: 8E0ZXY6 Isolation (ICD-10-PCS; 2020-05-17)
PROC: 30233L1 Transfusion of Nonautologous Fresh Plasma into Peripheral Vein, Percutaneous Approach (ICD-10-PCS; 2020-05-17)
PROC: 30233K1 Transfusion of Nonautologous Frozen Plasma into Peripheral Vein, Percutaneous Approach (ICD-10-PCS; 2020-05-17)
PROC: 06L38CZ Occlusion of Esophageal Vein with Extraluminal Device, Via Natural or Artificial Opening Endoscopic (ICD-10-PCS; principal; 2020-05-18)
DX: K70.31 Alcoholic cirrhosis of liver with ascites (principal); I85.11 Secondary esophageal varices with bleeding; U07.1 COVID-19; K76.6 Portal hypertension; D62 Acute posthemorrhagic anemia; D68.4 Acquired coagulation factor deficiency; K31.89 Other diseases of stomach and duodenum; D69.59 Other secondary thrombocytopenia; F17.210 Nicotine dependence, cigarettes, uncomplicated; I10 Essential (primary) hypertension; F10.20 Alcohol dependence, uncomplicated
CPT/HCPCS: 36415; 36430; 36600; 71045; 74177; 76705; 80053; 82140; 82248; 83605; 83690; 83880; 84484; 85025; 85610; 85730; 86850; 86900; 86901; 87040; 87635; 93005; C9113; J0696; J2060; J2354; J2405; J2704; J3411; J7042; J7050; P9059; Q9967; U0003

== ENCOUNTER 2020-05-27 08:15 | Emergency (ER) | payer OTHER, SELFPAY ==
[2020-05-27 08:56] LABS: Hemoglobin 12.4 g/dL (14.0-18.0); Mean Corpuscular HGB CONC 31.8 g/dL (32.0-36.0); Mean Corpuscular Hemoglobin 36.5 pg (27.0-31.0); Mean Platelet Volume 9.7 fL (7.4-10.4); Platelet Count 152 thou/uL (130-400); RBC Distribution Width 15.8 % (11.5-14.5); Red Blood Cell (RBC) Count 3.39 mill/uL (4.70-6.10); White Blood Cell (WBC) Count 18.1 thou/uL (4.8-10.8)
[2020-05-27 09:20] LABS: Band 6 % (5-11); Eosinophils 3 % (0-10); Lymphocytes 19 % (21-51); MDiff Complete? YES; Macrocytosis MODERATE=16-30 cells (100X) (0-5/hpf); Monocytes 18 % (0-10); Platelet Morphology Comment Appears Adequate; Polychromasia SLIGHT = 2-3 cells (100X) (0-2/hpf)
[2020-05-27 09:26] LABS: ALT (SGPT) 74 U/L (8-55); AST (SGOT) 159 U/L (5-34); Albumin 2.3 g/dL (3.5-5.0); Alkaline Phosphatase 161 U/L (40-110); Anion Gap 13 mmol/L (10-20); BUN (Urea Nitrogen) 34 mg/dL (8.9-20.6); Calc. Creatinine Clearance 0 mL/min (70-130); Calcium 7.2 mg/dL (7.8-10.44); Carbon Dioxide 19 mmol/L (22-29); Chloride 102 mmol/L (98-107); Estimated GFR-MDRD 31; Glucose 80 mg/dL (70-105); Lipase 103 U/L (8-78); Potassium 3.9 mmol/L (3.5-5.1); Protein, Total 6.9 g/dL (6.0-8.3); Sodium 130 mmol/L (136-145)
[2020-05-27 09:32] LABS: Bilirubin, Total 29.4 mg/dL (0.2-1.2)
[2020-05-27 09:44] LABS: Bilirubin, Direct 19.1 mg/dL (0.1-0.3)
[2020-05-27] MEDS ORDERED: cefTRIAXone\\ROCEPHIN 1 GM VIAL ONE (10:52)
--- NOTE | 2020-05-27 11:28 | PDOC.HHP ---
Hospitalist HPI - History of Present Illness Abdominal swelling History of Present Illness: PCP: Dr. Andrew Hernandez 40-year-old male with past medical history significant for alcoholic cirrhosis with portal hypertension and esophageal varices that presents to the ER for the above complaint. Reports increasing abdominal swelling with mild abdominal pain over the past several days. Describes the pain as aching, constant, exacerbated with sitting up and relieved by nothing. Denies nausea and vomiting. He reports associated shortness of breath. Denies any chest pain, heart palpitations, cough, wheezing. He was COVID positive on 05/17 he does have swelling to his lower extremities. He also reports diarrhea. Denies any hematochezia or melena. He reports dark-colored urine. Denies any dysuria. Denies fever or chills. The patient was recently discharged from our hospital on 05/21 for chief complaint of hematemesis. His H/H was stable throughout the stay and did not require any blood transfusions. He went for emergent EGD with Dr. Gonzalez, which resulted in banding and ligation x3. Patient was discharged home on Protonix, propranolol, furosemide, Aldactone, which he has been compliant with taking as prescribed. ED Course: VITAL SIGNS WedMay 27, 2020 08:16 MICHAEL Stewart Denna BP: 128/71, Pulse: 60, Resp: 16, Temp: 98.3 (Oral), Pain: 0, O2 sat: 98 on ( Room Air), Time: 05/27/2020 08:16. VITAL SIGNS WedMay 27, 2020 10:42 MICHAEL Ramos Laine BP: 115/67, Pulse: 61, Resp: 12, Pain: 7, O2 sat: 97, Time: 05/27/2020 10:42. Medication administration: albumin, human 25 % 25 g IV Piggy Back Acknowledged 11:19 05/27/2020 sodium chloride 0.9 % intravenous 500 mL IV Fluid Infusion Acknowledged 11: sodium chloride 0.9 % intravenous 1 L IV Fluid Infusion Acknowledged 11:2019 cefTRIAXone injection 1 g IV Piggy Back Given 11:05/27/2020 sodium chloride 0.9 % intravenous 1 L IV Fluid Infusion Given 11:05/27/2020 Hospitalist ROS - Review of Systems Constitutional: denies: fever, chills Respiratory: reports: shortness of breath (Gradual). denies: cough, hemoptysis , SOB with excertion, pleuritic pain, sputum Cardiovascular: reports: edema. denies: chest pain, palpitations, light headedness Gastrointestinal: reports: abdominal pain (Mild), diarrhea. denies: nausea, vomiting Genitourinary: denies: dysuria, frequency, hematuria Skin: reports: kristina. denies: bruising Neurological: denies: weakness, incoordination, change in speech, confusion All other systems reviewed; all pertinent +/- noted in HPI/Subj - Medication Medications: 1. Protonix 40 mg p.o. twice daily 2. Propranolol 10 mg p.o. twice daily 3. Furosemide 20 mg p.o. daily. 4. Aldactone 50 mg p.o. daily Allergies: NKDA Hospitalist History - Past Medical History Source: patient, RN notes reviewed, old records Other Medical History: MEDICAL HISTORY WedMay 27, 2020 08:22 MICHAEL Borja Lacee Alcoholic cirrhosis with portal hypertension and esophageal varices Alcohol abuse MALE SURGICAL HISTORY WedMay 27, 2020 08:22 MICHAEL Borja Lacee Surgical history of hernia repair, Notes 1979. PSYCHIATRIC HISTORY WedMay 27, 2020 08:22 MICHAEL Borja Lacee No previous psychiatric history. SOCIAL HISTORY WedMay 27, 2020 08:22 Huong, Eunice RODRIGUEZ Patient drinks every day, Alcohol history notes: 1/2 bottle of vodka/day, Patient denies drug use, Patient currently uses tobacco, smokes cigarettes, Occasional or some day smoker, Lives at home, with family. pt notes stopped drinking 05/17/20. FAMILY HISTORY: Noncontributory for liver disease, contributory for cardiac disease - Exam General Appearance: NAD, awake alert General - other findings: Uncomfortable Eye: PERRL, scleral icterus ENT: normocephalic atraumatic, dry oral mucosa Neck: supple, symmetric, no JVD, no lymphadenopathy Heart: RRR, no murmur, no gallops, no rubs, normal peripheral pulses Respiratory: CTAB, no wheezes, no rales, no ronchi, normal chest expansion, no tachypnea Gastrointestinal: non-tender, no bruit, no guarding, no rigidity, distended ( Firm) Gastrointestinal - other findings: Distant bowel sounds Extremities: no clubbing Extremities - other findings: 3+ bilateral lower extremities Skin: negative: no rashes Neurological: normal sensation to touch, no weakness, no focal deficits Musculoskeletal: normal tone, normal strength Psychiatric: normal affect, A&O x 3 Hospitalist Results - Labs Result Diagrams: 05/27/20 08:45 05/27/20 08:45 Lab results: WBC 18.1 thou/uL (4.8-10.8) H 05/27/20 08:45 Hgb 12.4 g/dL (14.0-18.0) L 05/27/20 08:45 Hct 38.9 % (42.0-52.0) L 05/27/20 08:45 MCV 115.0 fL (78.0-98.0) H 05/27/20 08:45 Plt Count 152 thou/uL (130-400) 05/27/20 08:45 Band Neuts % (Manual) 6 % (5-11) 05/27/20 08:45 Sodium 130 mmol/L (136-145) L 05/27/20 08:45 Potassium 3.9 mmol/L (3.5-5.1) 05/27/20 08:45 Chloride 102 mmol/L (98-107) 05/27/20 08:45 Carbon Dioxide 19 mmol/L (22-29) L 05/27/20 08:45 BUN 34 mg/dL (8.9-20.6) H 05/27/20 08:45 Creatinine 2.35 mg/dL (0.7-1.3) H 05/27/20 08:45 Glucose 80 mg/dL (70-105) 05/27/20 08:45 Calcium 7.2 mg/dL (7.8-10.44) L 05/27/20 08:45 Total Bilirubin 29.4 mg/dL (0.2-1.2) H 05/27/20 08:45 AST 159 U/L (5-34) H 05/27/20 08:45 ALT 74 U/L (8-55) H 05/27/20 08:45 Alkaline Phosphatase 161 U/L (40-110) H 05/27/20 08:45 Ammonia 54 umol/L (18-72) 05/27/20 08:45 Serum Total Protein 6.9 g/dL (6.0-8.3) 05/27/20 08:45 Albumin 2.3 g/dL (3.5-5.0) L 05/27/20 08:45 Lipase 103 U/L (8-78) H 05/27/20 08:45 - EKG Interpretation EKG: EKG demonstrates normal sinus rhythm with a rate of 61, CO 166, QRS duration of 112, QTC of 539, QRS axis of 10 degrees with normal T waves normal axis prolonged QTC, ST segments normal. Nonspecific EKG. - Radiology Interpretation US - abdomen Status: other Additional Comment: Minimal ascitic fluid. Discussed findings with Dr. Phillips. Hospitalist H&P A/P - Problem (1) Alcoholic cirrhosis of liver Code(s): K70.30 - ALCOHOLIC CIRRHOSIS OF LIVER WITHOUT ASCITES Status: Acute (2) DEANNA (acute kidney injury) Code(s): N17.9 - ACUTE KIDNEY FAILURE, UNSPECIFIED Status: Acute (3) Hyponatremia Code(s): E87.1 - HYPO-OSMOLALITY AND HYPONATREMIA Status: Acute (4) Leukocytosis Code(s): D72.829 - ELEVATED WHITE BLOOD CELL COUNT, UNSPECIFIED Status: Acute (5) Tobacco abuse Code(s): Z72.0 - TOBACCO USE Status: Chronic (6) Alcohol abuse Code(s): F10.10 - ALCOHOL ABUSE, UNCOMPLICATED Status: Acute - Plan Plan: 40/M with H alcoholic cirrhosis with ascites and esophageal varices presents for worsening abdominal girth. Recently discharged on 05/21 for upper GI bleed. Stable vital signs. Admit to the medical floor, inpatient status. Expected length of stay greater than 2 midnights. #Alcoholic cirrhosis of liver Maddrey's score 79.5, poor prognosis. T bili 29.4, direct bili 19.1, AST 159, ALT 74, ALP 161, albumin 2.3 Lipase 103, ammonia 54 WBC 18.1, lactic acid 0.8concern for SBP Blood cultures pending Dr. Adame consulted by ER physician. Initiated contact with [facility] hepatology for possible transfer. Received 30 mls/Kg IV fluid Continue Rocephin, albumin Consult IR for diagnostic paracentesis with fluid analysis Obtain PT/INR level #DEANNA Presented with a creatinine of 2.35. Previous creatinine 0.61. Likely hepatorenal syndrome related. Recently started on Lasix and spironolactone. Will hold for now Received 2.5 L IV fluids in ER. We will recheck level in a.m. #Hyponatremia, mild Na 130 Recently started on Lasix and spironolactone. Will hold for now. Likely related to problem 1. Will recheck level in a.m. #Leukocytosis Unclear etiology at this time. Concern for SBP. Continue Rocephin. #Tobacco abuse Unwilling to quit. Will vocational counselor tobacco cessation. #Alcohol abuse History of half a bottle of vodka per day for approximately 12 years. Recently quit on 05/17/2020. No SCDs. Heparin for DVT prophylaxis (pending coag studies). Protonix for GI prophylaxis. Designated medical decision-maker is MICHELLE [phone]. CALL WITH UPDATES. Discussed case with Dr. Ramos.
[2020-05-27] MEDS ORDERED: Albumin 25% 25 GM/100 ML BOT IVPB SCH (11:45)
[2020-05-27] MEDS ORDERED: Calcium Carbonate 500 MG ChewTAB PO PRN (12:00)
[2020-05-27] MEDS ORDERED: Ondansetron PF 4 MG/2 ML Vial IVP PRN (12:00)
[2020-05-27] MEDS ORDERED: Ondansetron ODT 4 MG TAB PO PRN (12:00)
[2020-05-27] MEDS ORDERED: traMADol HCl 50 MG TAB PO PRN (12:03)
[2020-05-27 12:32] LABS: INR-International Normal Ratio 2.3; PTT 42.6 sec (22.9-36.1); Prothrombin Time 25.3 sec (12.0-14.7)
--- NOTE | 2020-05-27 21:40 | CON ---
DATE OF CONSULTATION: 05/27/2020 CHIEF COMPLAINT: Abdominal swelling and discomfort and diarrhea and decreased urine output. HISTORY OF PRESENT ILLNESS: Mr. Wallis is a 40-year-old man, who was just admitted to the hospital between 05/17/2020 to 05/21/2020 with esophageal varices bleeding. He was diagnosed with a new diagnosis of cirrhosis at that time. He underwent EGD on 05/18/2020 with three bands placed over large grade 2 to 3 distal esophageal varices with red dania signs. No gastric varices were seen. [id number] portal hypertensive gastropathy was present. He was discharged on 05/21/2020 with medication list including propranolol 10 mg twice daily, Aldactone 50 mg daily, furosemide 20 mg daily, and pantoprazole 40 mg twice daily. Over the last several days, he complains of diarrhea with mushy stools several times throughout the day, sometimes with incontinence. He has noticed over the last 3 days, marked decrease in his urine output and has just had some dribbles of urine when he has bowel movements, but no significant urine output. He has had abdominal pressure and decreased appetite and early satiety. He has somewhat diffuse pressure-type abdominal discomfort that does not radiate and has been rather constant over the last few days. He has had no blood in the stool. He has gained weight since hospital discharge estimated around 20 pounds. PAST MEDICAL HISTORY: 1. Recently diagnosed alcoholic cirrhosis, decompensated. His last drink of alcohol was 05/16/2020. I do not see that lab workup for other causes of liver disease has been sent as of yet, and I cannot comment on his viral hepatitis status or iron saturation or autoimmune markers. 2. Esophageal varices with bleeding, status post EGD with banding on 05/18/2020. 3. Lower extremity edema and mild ascites. Previous hospital stay did not have enough ascites to tap by Radiology ultrasound. 4. Alcohol abuse. PAST SURGICAL HISTORY: Had an umbilical hernia repair as a baby. He had testicular torsion correction. FAMILY HISTORY: Negative for GI malignancy or liver disease. SOCIAL HISTORY: He drank half a bottle of vodka daily. Estimated intake of vodka was 325 mL daily. He smokes a few cigarettes per day when he was drinking, but he quit drinking on 05/16/2020. No drugs. His is active in his care and has been advocating for him. She has been encouraging him to stop alcohol use and has been working with him on that. He did not drink any alcohol between his hospital discharge and returned to the ER now. He has a 2-year-old child. 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 ALLERGIES: NO KNOWN DRUG ALLERGIES. MEDICATIONS: Prior to admission, propranolol, spironolactone, furosemide, and pantoprazole as stated in the HPI. REVIEW OF SYSTEMS: Negative x10 systems reviewed except as stated in the History of Present Illness. PHYSICAL EXAMINATION: GENERAL: He is jaundiced. Alert and oriented x3. HEENT: Eyes have scleral icterus. Oropharynx is clear without lesions. NECK: He has no cervical or supraclavicular lymphadenopathy. NEUROLOGICAL: No asterixis on neurological exam. He has fetor hepaticus. SKIN: Reveals multiple spider angiomas across his chest. LUNGS: to auscultation bilaterally. HEART: Regular rate and rhythm without murmur. ABDOMEN: Soft, mildly distended. Bowel sounds are present. EXTREMITIES: 1+ lower extremity edema. RECTAL: Reveals light brown stool in the rectal vault. LABORATORY DATA: Sodium 130, potassium 3.9, chloride 102, CO2 was 19, BUN 34, and creatinine 2.35. This is up from a baseline of 0.61 on 05/19/2020. Bilirubin is 29.4, up from 20.8 on 05/19/2020, AST 159, ALT 74, alkaline phosphatase 161. Ammonia 54. Albumin 2.3. Lipase 103. INR 2.0. White blood cell count 18.1, hemoglobin 12.4, and platelets 152. Baseline labs from 05/19/2020 were white blood cell count of 6.9 with hemoglobin of 10.0, and platelets of 51. His COVID was positive on 05/17/2020, but not symptomatic. IMPRESSION: 1. Decompensated alcoholic cirrhosis with acute alcoholic hepatitis. Still additional workup needs to be completed for other causes of liver disease. Viral hepatitis labs and autoimmune markers and iron studies and ceruloplasmin and alpha-1 antitrypsin should all be sent. 2. Acute renal failure, rule out hepatorenal syndrome. Overall, this is likely prerenal azotemia secondary to the new onset use of diuretics and propranolol and dehydration with diarrhea. Hopefully, this will turn around with fluid and albumin. 3. Mild ascites and leukocytosis, rule out spontaneous bacterial peritonitis. There is not adequate fluid for bedside tap in the ER. We will refer him to Radiology for diagnostic tap. 4. Diarrhea. This has been mushy stools several times per day, sometimes with incontinence. Stool study should be performed. 5. Recent esophageal varices hemorrhage, status post banding x3 on 05/18/2020. He has no evidence of acute blood loss now. His stool is light brown on rectal exam currently. 6. Cholelithiasis, incidentally noted on prior imaging is unrelated to the current hospital stay. 7. COVID positive on 05/17/2020. He should now be far enough out that this should not be an issue. This has been asymptomatic. RECOMMENDATIONS: 1. Normal saline boluses. 2. Albumin IV. 3. Blood cultures. 4. Diagnostic paracentesis with radiologic guidance if possible. 5. Ceftriaxone. 6. Stool studies for C difficile culture, ova and parasite, lactoferrin. 7. Hold diuretics and propranolol. 8. Continue alcohol abstinence. 9. I spoke with the transplant straddle bug driver at [facility]. They will accept him as a transfer to assess if he is a potential transplant candidate or not. He has strong family support including his and additional family members with young child. 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 Unfortunately, he is uninsured. Job ID: [id number]
[2020-05-28] MEDS ORDERED: cefTRIAXone\\ROCEPHIN 1 GM in Sodium Chloride 0.9% 100 ML IVPB SCH (11:00)
[2020-05-28 11:02] LABS: Neutrophil 54 % (42-75)
--- NOTE | 2020-06-01 13:39 | EKG ---
Test Reason : Blood Pressure : / mmHG Vent. Rate : 061 BPM Atrial Rate : 061 BPM P-R Int : 166 ms QRS Dur : 112 ms QT Int : 536 ms P-R-T Axes : 018 010 022 degrees QTc Int : 539 ms Normal sinus rhythm Prolonged QT Abnormal ECG Confirmed by DINORAH HARRY DO ([id number]), department editor ASIA SOTO ([id number] on 06/01/2020 1:38:50 PM Referred By: Confirmed By:DINORAH HARRY DO
== END 2020-05-27 13:27 | disposition short-term general hospital (02) ==
LOC: ERS 08:15
DX: K74.60 Unspecified cirrhosis of liver (principal); N17.9 Acute kidney failure, unspecified; R60.0 Localized edema; F17.210 Nicotine dependence, cigarettes, uncomplicated
CPT/HCPCS: 36415; 80048; 80076; 82140; 83605; 83690; 85025; 85610; 85730; 87040; 93005; 96365; 96366; 96368; J0696; P9047

== ENCOUNTER 2021-01-04 04:42 | Emergency (ER) | payer OTHER, SELFPAY ==
[2021-01-04 05:45] LABS: INR-International Normal Ratio 2.1; PTT 41.1 sec (22.9-36.1); Prothrombin Time 23.6 sec (12.0-14.7)
[2021-01-04 05:53] LABS: ALT (SGPT) 43 U/L (8-55); AST (SGOT) 67 U/L (5-34); Albumin 2.2 g/dL (3.5-5.0); Alkaline Phosphatase 174 U/L (40-110); Anion Gap 9 mmol/L (10-20); BUN (Urea Nitrogen) 11 mg/dL (8.9-20.6); Bilirubin, Total 2.5 mg/dL (0.2-1.2); Calc. Creatinine Clearance 0 mL/min (70-130); Calcium 7.7 mg/dL (7.8-10.44); Carbon Dioxide 18 mmol/L (22-29); Chloride 107 mmol/L (98-107); Globulin 3.6 g/dL (2.4-3.5); Glucose 84 mg/dL (70-105); Lipase 44 U/L (8-78); Potassium 3.9 mmol/L (3.5-5.1); Protein, Total 5.8 g/dL (6.0-8.3); Sodium 130 mmol/L (136-145)
[2021-01-04 06:12] LABS: Band 5 % (5-11); Eosinophils 8 % (0-10); Hemoglobin 10.3 g/dL (14.0-18.0); Lymphocytes 12 % (21-51); MDiff Complete? YES; Mean Corpuscular HGB CONC 33.5 g/dL (32.0-36.0); Mean Corpuscular Hemoglobin 32.4 pg (27.0-31.0); Mean Corpuscular Volume 96.6 fL (78.0-98.0); Mean Platelet Volume 9.2 fL (7.4-10.4); Monocytes 12 % (0-10); Neutrophil 63 % (42-75); Platelet Count 73 thou/uL (130-400); Platelet Morphology Comment Appears Decreased; RBC Distribution Width 13.1 % (11.5-14.5); Red Blood Cell (RBC) Count 3.18 mill/uL (4.70-6.10); White Blood Cell (WBC) Count 6.4 thou/uL (4.8-10.8)
== END 2021-01-04 06:25 | disposition home or self-care (01) ==
LOC: ERS 04:42
DX: R41.0 Disorientation, unspecified (principal); R06.02 Shortness of breath; F17.210 Nicotine dependence, cigarettes, uncomplicated
CPT/HCPCS: 71045; 80053; 83690; 83880; 85025; 85610; 85730

== ENCOUNTER 2021-01-07 07:40 | Outpatient (CLI) | payer MEDICAID | END 2021-01-07 07:41 | disposition home or self-care (01) | LOC: BICULT 07:40 | PROVIDERS: ATTEND Specialist | DX: R18.8 Other ascites (principal); J90 Pleural effusion, not elsewhere classified | CPT/HCPCS: 76705 ==

== ENCOUNTER 2023-01-26 10:51 | Emergency (ER) | payer OTHER ==
[2023-01-26] MEDS ORDERED: cefTRIAXone (ROCEPHIN) 2 GM VIAL ONE (11:12)
== END 2023-01-26 11:42 | disposition home or self-care (01) ==
LOC: ERS 10:51
DX: R78.81 Bacteremia (principal)
CPT/HCPCS: 96365; J0696

== ENCOUNTER 2023-07-07 02:02 | Emergency (ER) | payer MEDICARE, OTHER ==
[2023-07-07] MEDS ORDERED: Acetaminophen 325 MG TAB ONE ×2 (02:32→02:46)
[2023-07-07 04:03] LABS: SARS-CoV-2 NAA Rapid Test Not Detected (NotDetected)
== END 2023-07-07 02:48 | disposition home or self-care (01) ==
LOC: ERS 02:02
DX: B34.9 Viral infection, unspecified (principal); Z20.822 Contact with and (suspected) exposure to COVID-19
CPT/HCPCS: 0240U; 99283

== ENCOUNTER 2024-06-08 05:04 | Emergency (ER) | payer MEDICAID, MEDICARE ==
[2024-06-08] MEDS ORDERED: Ketorolac Tromethamine 30 MG (1 mL) VIAL ONE (05:31)
[2024-06-08 05:50] LABS: ALT (SGPT) 31 U/L (8-55); AST (SGOT) 33 U/L (5-34); Albumin 3.6 g/dL (3.5-5.0); Alkaline Phosphatase 104 U/L (40-110); Anion Gap 14 mmol/L (10-20); BUN (Urea Nitrogen) 8 mg/dL (8.9-20.6); Bilirubin, Total 0.8 mg/dL (0.2-1.2); CRP,High Sensitivity (Inhouse) 3.86 mg/dL (< or = 0.5); Calc. Creatinine Clearance 0 mL/min (70-130); Calcium 8.8 mg/dL (7.8-10.44); Carbon Dioxide 19 mmol/L (22-29); Chloride 104 mmol/L (98-107); Estimated GFR 107; Globulin 3.7 g/dL (2.4-3.5); Glucose 123 mg/dL (70-105); Magnesium 1.7 mg/dL (1.6-2.6); Potassium 3.5 mmol/L (3.5-5.1); Protein, Total 7.3 g/dL (6.0-8.3); Sodium 133 mmol/L (136-145)
[2024-06-08 06:16] LABS: Hematocrit 49.2 % (42.0-52.0); Hemoglobin 17.1 g/dL (14.0-18.0); Mean Corpuscular HGB CONC 34.8 g/dL (32.0-36.0); Mean Corpuscular Hemoglobin 29.3 pg (27.0-31.0); Mean Corpuscular Volume 84.2 fL (78.0-98.0); Mean Platelet Volume 10.3 fL (7.4-10.4); Platelet Count 68 10x3/uL (130-400); RBC Distribution Width 13.4 % (11.5-14.5); Red Blood Cell (RBC) Count 5.84 mill/uL (4.70-6.10)
[2024-06-08 06:33] LABS: INR-International Normal Ratio 1.2; Prothrombin Time 15.3 sec (12.0-14.7)
[2024-06-08 06:34] LABS: PTT 40.8 sec (22.9-36.1)
[2024-06-08] MEDS ORDERED: Cefepime 2 GM VIAL ONE (06:35)
[2024-06-08] MEDS ORDERED: Sodium Chloride 0.9% 100 ML ONE (06:36)
[2024-06-08 06:39] LABS: Influenza A by NAA Not Detected (NotDetected); Influenza B by NAA Not Detected (NotDetected); SARS-CoV-2 NAA Rapid Test Not Detected (NotDetected)
[2024-06-08 06:58] LABS: Band 9 % (5-11); Eosinophils 1 % (0-10); Lymphocytes 11 % (21-51); Macrocytosis SLIGHT = 6-15 cells HPF (0-5); Monocytes 17 % (0-10); Neutrophil 50 % (42-75); Platelet Adequacy Comment Platelets Decreased; Polychromasia SLIGHT = 2-3 cells HPF (0-2); Reactive Lymphocytes 12 % (0-10); Smudge Cells 9.8 %
[2024-06-08 07:37] LABS: Bacteria/HPF None Seen HPF (None Seen); Bilirubin Negative (Negative); Blood, Urine Negative (Negative); CAUTI Indications for Culture Immunosuppressed; Clarity Clear (Clear); Glucose, Urine (Dipstick) Normal (Negative); Ketone, Urine Negative (Negative); Leukocyte Negative Leu/uL (Negative); Nitrite Negative (Negative); Protein, Urine (Dipstick) 30 mg/dL (Neg-Trace); RBC/HPF 0-3 HPF (0-3); Squamous Epithelial None Seen HPF (0-3); Urobilinogen Normal mg/dL (Less than 2); WBC/HPF 0-3 HPF (0-3); pH, Urine 6.5 (5.0-9.0)
[2024-06-08 07:39] LABS: Urine Culture Reflex Yes Yes
== END 2024-06-08 07:18 | disposition left against medical advice (07) ==
LOC: ERS 05:04
DX: J90 Pleural effusion, not elsewhere classified (principal); R09.02 Hypoxemia
CPT/HCPCS: 0240U; 71045; 80053; 81001; 83605; 83735; 84145; 85025; 85610; 85730; 86141; 87040; 87086; 93005; 96365; 96375; 99284; J0692; J1885

== ENCOUNTER 2024-08-05 01:05 | Inpatient (IN) | payer MEDICARE, OTHER ==
[2024-08-05 02:13] LABS: #Basophils 0.03 10x3/uL (0.0-0.2); %Basophils 0.4 % (0.0-1.0); %Eosinophils 1.8 % (0.0-10.0); %Lymphocytes 44.8 % (21.0-51.0); %Monocytes 12.5 % (0.0-10.0); %Neutrophils 40.4 % (42.0-75.0); Hematocrit 46.9 % (42.0-52.0); Mean Corpuscular HGB CONC 34.1 g/dL (32.0-36.0); Mean Corpuscular Hemoglobin 29.5 pg (27.0-31.0); Mean Corpuscular Volume 86.4 fL (78.0-98.0); Mean Platelet Volume 10.3 fL (7.4-10.4); Platelet Count 108 10x3/uL (130-400); RBC Distribution Width 14.2 % (11.5-14.5); Red Blood Cell (RBC) Count 5.43 mill/uL (4.70-6.10)
[2024-08-05] MEDS ORDERED: Morphine 4 MG/ML VIAL ONE ×2 (02:17→03:04)
[2024-08-05] MEDS ORDERED: Ondansetron PF 4 MG/2 ML Vial ONE (02:17)
[2024-08-05 02:27] LABS: ALT (SGPT) 22 U/L (8-55); AST (SGOT) 22 U/L (5-34); Albumin 3.6 g/dL (3.5-5.0); Alkaline Phosphatase 94 U/L (40-110); Anion Gap 13 mmol/L (10-20); BUN (Urea Nitrogen) 9 mg/dL (8.9-20.6); Calc. Creatinine Clearance 0 mL/min (70-130); Calcium 8.8 mg/dL (7.8-10.44); Carbon Dioxide 23 mmol/L (22-29); Chloride 104 mmol/L (98-107); Estimated GFR 114; Globulin 3.5 g/dL (2.4-3.5); Glucose 91 mg/dL (70-105); Lipase 12 U/L (8-78); Magnesium 1.5 mg/dL (1.6-2.6); Potassium 3.7 mmol/L (3.5-5.1); Protein, Total 7.1 g/dL (6.0-8.3); Sodium 136 mmol/L (136-145)
[2024-08-05 02:30] LABS: Troponin I Less than 0.010 ng/mL (< 0.028)
[2024-08-05] MEDS ORDERED: Magnesium 2 GM/50 ML BAG (IN WATER) ONE (03:04)
[2024-08-05] MEDS ORDERED: Enoxaparin 100 MG (1 mL) SYRINGE ONE (06:54)
[2024-08-05] MEDS ORDERED: Ondansetron PF 4 MG/2 ML Vial IVP PRN (07:00)
[2024-08-05 08:04] LABS: Troponin I Less than 0.010 ng/mL (< 0.028)
[2024-08-05 08:20] VITALS: BMI 34.2
[2024-08-05 08:32] LABS: INR-International Normal Ratio 1.2; Prothrombin Time 15.2 sec (12.0-14.7)
[2024-08-05 08:33] LABS: PTT 43.7 sec (22.9-36.1)
[2024-08-05] MEDS: Acetaminophen 500 MG TAB PO SCH ×2 (08:33→20:29)
[2024-08-05] MEDS: Amlodipine 10 MG TAB PO SCH (08:33)
[2024-08-05] MEDS: Polyethylene Glycol 3350 17 GM Packet PO SCH (08:34)
[2024-08-05] MEDS: Morphine 2 MG/ML VIAL SLOW IVP PRN (08:40)
[2024-08-05] MEDS ORDERED: Acetaminophen 325 MG TAB PO SCH (09:00)
[2024-08-05 09:59] LABS: Troponin I Less than 0.010 ng/mL (< 0.028)
[2024-08-05] MEDS ORDERED: Iopamidol-370 76% 500 ML MDV (1 ML CHARGE) ONE (12:47)
[2024-08-05 12:48] LABS: Magnesium 1.9 mg/dL (1.6-2.6)
[2024-08-05] MEDS ORDERED: Morphine 2 MG/ML VIAL SLOW IVP PRN (14:49)
[2024-08-05] MEDS: Morphine 2 MG/ML VIAL SLOW IVP SCH (15:03)
[2024-08-05] MEDS: Enoxaparin 120 MG/0.8 ML SYRINGE SC SCH (18:18)
[2024-08-05] MEDS: HYDROcodone/Acetaminophen 5/325 mg Tablet PO PRN (18:19)
[2024-08-05] MEDS ORDERED: HYDROcodone/Acetaminophen 5/325 mg Tablet PO PRN (19:00)
[2024-08-05] MEDS: Tacrolimus 1 MG CAP PO SCH (20:30)
[2024-08-05] MEDS: Sertraline 100 MG TAB PO SCH (20:31)
[2024-08-06 04:59] LABS: Anion Gap 10 mmol/L (10-20); BUN (Urea Nitrogen) 9 mg/dL (8.9-20.6); Calc. Creatinine Clearance 206 mL/min (70-130); Calcium 8.5 mg/dL (7.8-10.44); Carbon Dioxide 26 mmol/L (22-29); Chloride 103 mmol/L (98-107); Estimated GFR 115; Glucose 126 mg/dL (70-105); Magnesium 1.7 mg/dL (1.6-2.6); Potassium 4.2 mmol/L (3.5-5.1); Sodium 135 mmol/L (136-145)
[2024-08-06 05:01] LABS: INR-International Normal Ratio 1.3; PTT 52.2 sec (22.9-36.1)
[2024-08-06 05:11] LABS: #Basophils Less than 0.03 10x3/uL (0.0-0.2); %Basophils 0.3 % (0.0-1.0); %Eosinophils 1.8 % (0.0-10.0); %Monocytes 12.3 % (0.0-10.0); %Neutrophils 49.3 % (42.0-75.0); Hematocrit 43.5 % (42.0-52.0); Hemoglobin 14.2 g/dL (14.0-18.0); Mean Corpuscular HGB CONC 32.6 g/dL (32.0-36.0); Mean Corpuscular Hemoglobin 29.1 pg (27.0-31.0); Mean Corpuscular Volume 89.1 fL (78.0-98.0); Mean Platelet Volume 10.5 fL (7.4-10.4); Platelet Count 84 10x3/uL (130-400); RBC Distribution Width 14.3 % (11.5-14.5); Red Blood Cell (RBC) Count 4.88 mill/uL (4.70-6.10)
[2024-08-06] MEDS: Bisacodyl 5 MG TAB PO SCH (08:12)
[2024-08-06] MEDS: Apixaban 5 MG TAB PO SCH (08:12)
[2024-08-06] MEDS: Magnesium Oxide 400 MG TAB PO SCH (08:12)
[2024-08-06] MEDS: Sertraline 100 MG TAB PO SCH (08:12)
[2024-08-06] MEDS ORDERED: Enoxaparin 120 MG/0.8 ML SYRINGE SC SCH (09:00)
[2024-08-06 21:48] VITALS: BMI 34.2
[2024-08-07 05:19] LABS: Anion Gap 13 mmol/L (10-20); BUN (Urea Nitrogen) 8 mg/dL (8.9-20.6); Calc. Creatinine Clearance 212 mL/min (70-130); Calcium 8.5 mg/dL (7.8-10.44); Carbon Dioxide 25 mmol/L (22-29); Chloride 101 mmol/L (98-107); Estimated GFR 116; Glucose 90 mg/dL (70-105); Magnesium 1.4 mg/dL (1.6-2.6); Potassium 3.6 mmol/L (3.5-5.1); Sodium 135 mmol/L (136-145)
[2024-08-07 05:20] LABS: #Basophils Less than 0.03 10x3/uL (0.0-0.2); %Basophils 0.4 % (0.0-1.0); %Lymphocytes 44.7 % (21.0-51.0); %Monocytes 11.2 % (0.0-10.0); %Neutrophils 41.5 % (42.0-75.0); Hematocrit 42.7 % (42.0-52.0); Hemoglobin 14.2 g/dL (14.0-18.0); Mean Corpuscular HGB CONC 33.3 g/dL (32.0-36.0); Mean Corpuscular Hemoglobin 29.2 pg (27.0-31.0); Mean Corpuscular Volume 87.9 fL (78.0-98.0); Mean Platelet Volume 10.8 fL (7.4-10.4); Platelet Count 89 10x3/uL (130-400); RBC Distribution Width 13.9 % (11.5-14.5); Red Blood Cell (RBC) Count 4.86 mill/uL (4.70-6.10)
[2024-08-07] MEDS: Magnesium Oxide 400 MG TAB PO SCH (09:58)
[2024-08-07] MEDS: Magnesium 2 GM/50 ML(in water) 2 GM in Premix 1 BAG IVPB SCH (10:01)
[2024-08-07] MEDS: HYDROcodone/Acetaminophen 5/325 mg Tablet PO PRN (10:01)
[2024-08-08 04:44] LABS: Anion Gap 14 mmol/L (10-20); BUN (Urea Nitrogen) 9 mg/dL (8.9-20.6); Calc. Creatinine Clearance 198 mL/min (70-130); Calcium 8.9 mg/dL (7.8-10.44); Carbon Dioxide 27 mmol/L (22-29); Chloride 103 mmol/L (98-107); Estimated GFR 113; Glucose 103 mg/dL (70-105); Potassium 4.7 mmol/L (3.5-5.1); Sodium 139 mmol/L (136-145)
[2024-08-08 07:11] LABS: Magnesium 1.5 mg/dL (1.6-2.6)
[2024-08-08] MEDS: FLU (Fluarix Triv) TS24-25(6MOS UP)/PF 45 MCG/0.5 ML Syringe IM ONE (08:05)
[2024-08-08] MEDS: HYDROcodone/Acetaminophen 5/325 mg Tablet PO PRN (08:08)
[2024-08-08] MEDS: Magnesium Oxide 400 MG TAB PO SCH (08:09)
[2024-08-08 11:16] VITALS: BP 117/72; TEMP 97.9
== END 2024-08-08 16:23 | disposition home or self-care (01) | DRG 175 ==
LOC: ERS 01:05 → OBS 06:31 → OBSVTOIN 08-06 10:04
PROVIDERS: ADMIT Family Medicine; ATTEND Family Medicine
DX: I26.99 Other pulmonary embolism without acute cor pulmonale (principal); J96.01 Acute respiratory failure with hypoxia; J90 Pleural effusion, not elsewhere classified; Z94.4 Liver transplant status; E83.42 Hypomagnesemia; D69.6 Thrombocytopenia, unspecified; K43.9 Ventral hernia without obstruction or gangrene; E66.9 Obesity, unspecified; K74.60 Unspecified cirrhosis of liver; F32.9 Major depressive disorder, single episode, unspecified; F41.1 Generalized anxiety disorder; I10 Essential (primary) hypertension; Z68.34 Body mass index [BMI] 34.0-34.9, adult; Z79.899 Other long term (current) drug therapy
CPT/HCPCS: 36415; 71045; 71275; 74177; 80048; 80053; 83605; 83690; 83735; 83880; 84484; 85025; 85610; 85730; 87040; 93005; 93970; 97139; J1650; J2272; J2405; J3475; J7507; Q9967